=== PATIENT | female | born 1995 | race Caucasian/White ===

== ENCOUNTER 2024-05-18 21:38 | Emergency (ER) | payer OTHER, SELFPAY ==
--- NOTE | ~2024-05-18 | XR_ITS ---
CLINICAL HISTORY: L. ankle pain s p twist injury 3 view left ankle Comparison: None Findings: No acute fractures or dislocations. No significant arthritic change or erosions. No ankle effusion. No radiopaque foreign body. IMPRESSION: 1. No acute findings. This document has been electronically signed by: Elbert Jones MD on 05/18/2024 22:40:49
[2024-05-18 21:46] VITALS: BP 121/65; PULSE 71; RESP 16; TEMP 36.2; O2SAT 98; BMI 17.9
[2024-05-18 22:38] VITALS: BP 101/50; PULSE 68; RESP 12; TEMP 36.6; O2SAT 98
--- NOTE | 2024-05-18 22:45 | ED.LOWEXIN ---
HPI - Extremity Injury (Lower) General Chief Complaint: Extremity Injury, Lower Stated Complaint: left ankle inj Time Seen by Provider: 05/18/24 22:33 Source: patient Mode of arrival: ambulatory Limitations: no limitations History of Present Illness ED Provider: DR. Hendrickson HPI Narrative: 28-year-old female came in for evaluation of left ankle pain after twisting her ankle while playing soccer game to the hospital last night. Patient did not fall down, still able to bear weight on her left ankle no head injury, no cervical spine injury. Otherwise patient has no complaint. Related Data Allergies Allergy/AdvReac Type Severity Reaction Status Date / Time No Known Allergies Allergy Verified 05/18/24 21:49 Review of Systems Review of Systems: All other systems are reviewed and are negative Constitutional: Reports as per HPI and Reports no additional constitutional complaints Eyes: Reports as per HPI and Reports no additional eye complaints Reports system reviewed and no additional complaints, except as documented Cardiovascular: Reports as per HPI and Reports no additional cardiovascular complaints Respiratory: Reports as per HPI and Reports no additional respiratory complaints Gastrointestinal: Reports as per HPI and Reports no additional gastrointestinal complaints Genitourinary: Reports no additional female genitourinary complaints Musculoskeletal: Reports no additional musculoskeletal complaints Skin/Breast: Reports system reviewed and no additional complaints, except as docu Psychiatric: Reports no additional psychiatric complaints Endocrine: Reports no additional endocrine complaints Hematologic/Lymphatic: Reports no additional hematologic/lymphatic complaints Allergic/Immunologic: Reports no additional allergic/immunologic complaints Reports system reviewed and no additional complaints, except as documented and Reports Abnormal speech present COUNT INCLUDES THE [facility] Social History Social History Do you have a plan to hurt others: No Plan Physical Exam Vital Signs: Vital Signs: Last Vital Signs Temp 97.8 F 05/18/24 22:38 Pulse 68 05/18/24 22:38 Resp 12 05/18/24 22:38 BP 101/50 L 05/18/24 22:38 Pulse Ox 98 05/18/24 22:38 O2 Del Method Room Air 05/18/24 22:38 BMI result Body Mass Index 17.9 Vital signs have been reviewed and appear to be correct. Blood pressure elevated. Heart rate normal. Respiratory rate normal. Temperature normal. Oxygen saturation normal. Appearance: Alert. Oriented X3. No acute distress. Head: Normal external exam. Normocephalic. Atraumatic. No Swartz signs noted. No raccoon eyes noted Eyes: PERRLA. EOMI. Conjunctiva and sclera normal. Eyelids normal. ENT: TM's Normal. Pharynx normal. Uvula midline. Moist mucous membranes. No trismus noted. No drooling noted. No muffled voice noted. Neck: Normal inspection. Neck supple. FROM. No adenopathy. Thyroid Normal. No meningeal signs. No neck mass noted. CVS: Normal heart rate and rhythm. Heart sound normal. No murmurs noted. Pulses normal throughout. Respiratory: No respiratory distress. Painless inspiration. Breath sounds normal. No wheezes/rales/rhonchi noted. Chest nontender. No accessory muscle usage noted or decreased air movement noted. Abdomen: Soft and nontender. Bowel sounds normal in all 4 quadrants. No distention noted. No organomegaly noted. No visible injury noted. Back: No CVA tenderness. Full range of motion noted. Skin: Skin warm and dry. Normal skin color. Normal skin turgor. No rashes/lesions/lacerations noted. Extremities: Left ankle/left foot: Mild tenderness mostly on the lateral aspect of the left ankle, no deformity is appreciated, no swelling, patient is able to ambulate. A strong left PT/DP with less than 2 seconds light touch sensation is intact. Neuro: Oriented X 3. Cranial nerve exam: II-XII are grossly intact No motor deficit. No sensory deficit. Reflexes normal. Course Reevaluation(s) Reevaluation #1: 28-year-old female s/p left ankle injury, able to ambulate, neurovascularly intact on the physical exam, x-ray of left ankle showed no acute fracture. Will apply Kaushik bandage, take ibuprofen 200 mg tablet if needed for pain Time: 22:49 Medical Decision Making Differential Diagnosis Differential Diagnoses: The differential diagnosis associated with the presentation includes (Left ankle fracture, left ankle sprain, left ankle dislocation, head injury, cervical spine injury.) Admission/Observation Consideration of admission/observation: Escalation of care including admission/observation considered Independent Interpretation I performed an independent interpretation of an: Plain X-Ray (Left ankle: No acute fracture or dislocation.) Radiology Impression Discussion of test interpretation with radiology: I have reviewed the radiologist's reading. Discharge Plan Discharge Clinical Impression: Ankle sprain and strain Patient Disposition: Home, Self-Care Instructions: Ankle Sprain (ED) Additional Instructions: Take ggen-xzs-fmpmfxd ibuprofen tablet 200 mg every 6 hours if needed for pain.
--- OUTSIDE RECORDS SUMMARY | 2024-05-18 23:07 | XMS_ITS | Continuity of Care Document ---
Author Organization [facility] Address [address] [address]- Support Name Relationship Address Phone MARISA BARRERA Personal Relationship Unknown Unavai lable GREMLI, MARISA Personal Relationship Unknown Unavai lable GREMLI, MARISA father Unknown Unavailable GRENEIL, MARISA Personal Relationship Unknown Unavai lable GREMLI, MARISA Personal Relationship Unknown Unavai lable GREMLI, MARISA Personal Relationship Unknown Unavai lable GREMLI, MARISA Personal Relationship Unknown Unavai lable GREMLI, MARISA Personal Relationship Unknown Unavai lable GREMLI, MARISA Personal Relationship Unknown Unavai lable GREMLI, MARISA Personal Relationship Unknown Unavai lable GREMLI, MARISA Personal Relationship Unknown Unavai lable GREMLI, MARISA Personal Relationship Unknown Unavai lable GREMLI, MARISA Personal Relationship Unknown Unavai lable GREMLI, MARISA Personal Relationship Unknown Unavai lable GREMLI, MARISA Personal Relationship Unknown Unavai lable GREMLI, MARISA Personal Relationship Unknown Unavai lable GREMLI, MARISA Personal Relationship Unknown Unavai lable GREMLI, ANDIE Personal Relationship Unknown Unavai lable GREMLI, MARISA Personal Relationship Unknown Unavai lable GREMLI, MARISA Personal Relationship Unknown Unavai lable GREMLI, MARISA Personal Relationship Unknown Unavai lable GREMLI, MARISA Personal Relationship Unknown Unavai lable GREMLI, MARISA Personal Relationship Unknown Unavai lable GREMLI, MARISA Personal Relationship Unknown Unavai lable GREMLI, MARISA Personal Relationship Unknown Unavai lable GREMLI, MARISA Personal Relationship Unknown Unavai lable GREMLI, MARISA Personal Relationship Unknown Unavai lable GREMLI, MARISA Personal Relationship Unknown Unavai lable GREMLI, MARISA Personal Relationship Unknown Unavai lable GREMLI, MARISA Personal Relationship Unknown Unavai lable GREMLI, MARISA Personal Relationship Unknown Unavai lable GREMLI, MARISA Personal Relationship Unknown Unavai lable GREMLI, MARISA Personal Relationship Unknown Unavai lable GREMLI, MARISA Personal Relationship Unknown Unavai lable GREMLI, MARISA Personal Relationship Unknown Unavai lable GREMLI, MARISA Personal Relationship Unknown Unavai lable GREMLI, MARISA Personal Relationship Unknown Unavai lable GREMLI, MARISA Personal Relationship Unknown Unavai lable GREMLI, MARISA Personal Relationship Unknown Unavai lable GREMLI, MARISA Personal Relationship Unknown Unavai lable GREMLI, MARISA Personal Relationship Unknown Unavai lable GREMLI, MARISA Personal Relationship Unknown Unavai lable GREMLI, MARISA Personal Relationship Unknown Unavai lable GREMLI, MARISA Personal Relationship Unknown Unavai lable GREMLI, MARISA Personal Relationship Unknown Unavai lable GREMLI, MARISA Personal Relationship Unknown Unavai lable GREMLI, MARISA Personal Relationship Unknown Unavai lable GREMLI, MARISA Personal Relationship Unknown Unavai lable GREMLI, MARISA Personal Relationship Unknown Unavai lable GREMLI, MARISA Personal Relationship Unknown Unavai lable GREMLI, MARISA Personal Relationship Unknown Unavai lable Care Team Providers Care Customer Service Representative Name Role Phone Loyd CASTANON, Xavi Earl Primary Care Physician Encounter [facility] ACCT R [id number] Date(s): 03/28/24 - 04/27/24 [facility] [address] [place] [address] Encounter Type: Triage Allergies, Adverse Reactions, Alerts No Known Medication Allergies Immunizations Given and Recorded Vaccine Date Status Refusal Reason influenza virus vaccine, inactivated 1 01/30/24 Gi sanjuana influenza virus vaccine, inactivated 2 01/24/23 Gi sanjuana influenza virus vaccine, inactivated 3 12/21/21 Gi sanjuana influenza virus vaccine, inactivated 4 01/19/21 Gi sanjuana influenza virus vaccine, inactivated 5 04/02/19 Gi sanjuana influenza virus vaccine, inactivated 6 01/10/18 Gi sanjuana SARS-CoV-2 mRNA (hulefip-wzwn-agscn) vax 01/03/22 Recorded SARS-CoV-2 (COVID-19) mRNA-1273 vaccine 03/03/21 R ecorded SARS-CoV-2 (COVID-19) mRNA-1273 vaccine 07/17/20 R ecorded SARS-CoV-2 (COVID-19) mRNA-1273 vaccine 06/19/20 R ecorded tetanus/diphtheria/pertussis, acel(Tdap) 08/07/19 Recorded tetanus-diphtheria toxoids (Td) 08/05/19 Recorded 1Result Comment: [id number] 2Result Comment: [facility] [id number] 3Result Comment: [facility]: [phone] 4Result Comment: [facility]: [phone] 5Result Comment: PT handled procedure well with no complaints. [facility]: [id number] 6Result Comment: [01/10/2018] [facility]#[id number] Medications ethinyl estradiol-etonogestrel 0.015 mg-0.120 mg/24 hours vaginal ring See Instructions, Insert 1 ring vaginally for 3 weeks, then remove for 7 days and insert new ring after., # 3 Unknown, 0 Refills, Maintenance, 01/29/24 2:08:00 PM EST, Prescription [facility], 84, Insert 1ring vaginally for 3 weeks, then remove for 7 days and insert new ring after., 158, cm, 07/25/23 10:27:00 EDT, Height, 41.3, kg, 07/25/23 10:27:00 EDT, Dry Weight Start Date: 01/29/24 Status: Ordered Quantity: 3.0 Unit: Unknown Repeat number: 1 lamotrigine 100 mg oral tablet 1, tablet, By Mouth, Daily, Take with 25mg tablet for a total of 125mg daily., # 90 tablet, Refills1, Tot. Refills 1, Maintenance, 12/25/23 1:16:00 PM EDT, Route to Pharmacy Electronically, Prescription [facility], please ship to [address] [address], 158, cm, 07/25/23 10:27:00 EDT,Height, 41.3, kg, 07/25/23 10:27:00 EDT, Dry Weight Start Date: 12/25/23 Status: Ordered Quantity: 90.0 Unit: tablet Repeat number: 2 lamotrigine 25 mg oral tablet 1, tablet, By Mouth, Daily, take with 100mg tab for daily total dose of 125mg, # 90 tablet, Refills1, Tot. Refills 1, Maintenance, 12/25/23 1:16:00 PM EDT, Route to Pharmacy Electronically, Prescription [facility], please ship to [facility]- [address] [place] [address], 158, cm, 07/25/23 10:27:00 EDT,Height, 41.3, kg, 07/25/23 10:27:00 EDT, Dry Weight Start Date: 12/25/23 Status: Ordered Quantity: 90.0 Unit: tablet Repeat number: 2 methylphenidate 20 mg oral tablet 1 tablet = 20 mg, By Mouth, Daily, Please ship to [facility] at [address] [place] [address], # 30 tablet, 0 Refills, Maintenance, 04/22/24 12:48:00 PM EST, Prescription [facility], 158, cm, 02/13/24 13:09:00 EST, Height, 42.4, kg, 01/30/24 10:30:00 EST, Dry Weight Start Date: 04/22/24 Status: Ordered Quantity: 30.0 Unit: tablet Repeat number: 1 Methylphenidate Hydrochloride CD 40 mg/24 hr oral capsule, extended release 1 capsule = 40 mg, By Mouth, Daily in AM, Please ship to [facility] at [address] [place] [address], # 30 capsule, 0 Refills, Maintenance, 04/22/24 12:48:00 PM EST, Prescription [facility], 158, cm, 02/13/24 13:09:00 EST, Height, 42.4, kg, 01/30/24 10:30:00 EST, Dry Weight Start Date: 04/22/24 Status: Ordered Quantity: 30.0 Unit: capsule Repeat number: 1 QUEtiapine 50 mg oral tablet 1 tablet, By Mouth, Daily at bedtime, # 90 tablet, 1 Refills, Maintenance, 03/28/24 1:01:00 PM EST, [id number], 158, cm, 02/13/24 13:09:00 EST, Height, 42.4, kg, 01/30/24 10:30:00 EST, Dry Weight Start Date: 03/28/24 Status: Ordered Quantity: 90.0 Unit: tablet Repeat number: 2 Vitamin D3 2000 intl units oral tablet 1 tablet = 50 mcg, By Mouth, Daily, # 90 tablet, 0 Refills, Maintenance, 02/04/24 1:50:00 PM EST, Prescription [facility], Partial fill upon patient request if the prescription is for a schedule II opioid drug., 158, cm, 01/30/24 10:30:00 EST, Height, 42.4, kg, 01/30/24 10:30:00 EST, Dry Weight Start Date: 02/04/24 Status: Ordered Quantity: 90.0 Unit: tablet Repeat number: 1 Problem List Condition Confirmation Course Effective Dates Status H ealth Status Informant Anxiety disorder Confirmed Active ADHD (attention deficit hyperactivity disorder), combined type Confirmed Active Dyspareunia Confirmed Active History of panic attacks Confirmed Active History of shingles 1 Confirmed Active Depression, major, recurrent, in partial remission Confirmed Active Heart murmur, systolic Confirmed Active Underweight Confirmed Active Vitamin D insufficiency 2 Confirmed Active 1right leg 01/2021 Social History Social History Type Response Smoking Status Never (less than 100 in lifetime) entered on: 12/06/19 Sex Sex Representation Female (finding) Patient Care team information Care Team Personnel Name: Xavi Harp MD Position: [facility] Physician - Primary Care Member Role: PCP Address: [address] [place] [address] Adult & Pediatric Medicine [address] Telecom: Care Team Related Persons Name: MARISA BARRERA Insurance Providers Guarantor name: ANDIE BARRERA Health Plan Information #: 1 Payer: [employer]IME Member Number: NA Policy Number: NA Group Number: NA Health Plan Information #: 2 Payer: [employer] [facility] Member Number: NA Policy Number: NA Group Number: NA
--- OUTSIDE RECORDS SUMMARY | 2024-05-18 23:07 | XMS_ITS | Continuity of Care Document ---
Author Organization [facility] Address [address] [address]- Support Name Relationship Address Phone MARISA BARRERA [...] Unknown Unavai lable Care Team Providers Care Used Car Make Ready Mechanic Name Role Phone Loyd CASTANON, Xavi Earl Primary Care Physician [phone] [id number] - 04/24/24 [facility] [address] [place] [address] Encounter Type: Triage Allergies, Adverse Reactions, Alerts [...] inactivated 6 01/10/18 Gi sanjuana SARS-CoV-2 mRNA (exhrdtt-glui-tkehn) vax 01/03/22 Recorded SARS-CoV-2 (COVID-19) mRNA-1273 vaccine 03/03/21 R ecorded SARS-CoV-2 (COVID-19) mRNA-1273 vaccine 07/17/20 R ecorded SARS-CoV-2 (COVID-19) mRNA-1273 vaccine 06/19/20 R ecorded tetanus/diphtheria/pertussis, acel(Tdap) 08/07/19 Recorded tetanus-diphtheria toxoids (Td) 08/05/19 Recorded 1Result Comment: [id number] 2Result Comment: [facility] [id number] 3Result Comment: [facility][note 3]: [id number] 4Result Comment: [facility][note 3]: [id number] 5Result Comment: PT handled procedure well with no complaints. [facility]: [id number] 6Result Comment: [01/10/2018] [facility]#[id number] Medications ethinyl estradiol-etonogestrel 0.015 mg-0.120 mg/24 hours vaginal ring See Instructions, Insert 1 ring vaginally for 3 weeks, then remove for 7 days and insert new ring after., # 3 Unknown, 0 Refills, Maintenance, 01/29/24 2:08:00 PM EST, Prescription [facility], 84, Insert 1ring vaginally for 3 weeks, [...] PM EDT, Route to Pharmacy Electronically, Prescription [facility], please ship to [address] [address], 158, cm, 07/25/23 10:27:00 EDT,Height, 41.3, kg, 07/25/23 10:27:00 EDT, Dry Weight Start Date: 12/25/23 Status: Ordered Quantity: 90.0 Unit: tablet Repeat number: 2 lamotrigine 25 mg oral tablet 1, tablet, By Mouth, Daily, take with 100mg tab for daily total dose of 125mg, # 90 tablet, Refills1, Tot. Refills 1, Maintenance, 12/25/23 1:16:00 PM EDT, Route to Pharmacy Electronically, Prescription [facility], please ship to [facility]- [address] [place] [address], 158, cm, 07/25/23 10:27:00 EDT,Height, 41.3, kg, 07/25/23 10:27:00 EDT, Dry Weight Start Date: 12/25/23 Status: Ordered Quantity: 90.0 Unit: tablet Repeat number: 2 methylphenidate 20 mg oral tablet 1 tablet = 20 mg, By Mouth, Daily, Please ship to [facility] at [address] [place] [address], # 30 tablet, 0 Refills, Maintenance, 04/22/24 12:48:00 PM EST, Prescription [facility], 158, cm, 02/13/24 13:09:00 EST, Height, 42.4, kg, 01/30/24 10:30:00 EST, Dry Weight Start Date: 04/22/24 Status: Ordered Quantity: 30.0 Unit: tablet Repeat number: 1 Methylphenidate Hydrochloride CD 40 mg/24 hr oral capsule, extended release 1 capsule = 40 mg, By Mouth, Daily in AM, Please ship to [facility] at [address] [place] [address], # 30 capsule, 0 Refills, Maintenance, 04/22/24 12:48:00 PM EST, Prescription [facility], 158, cm, 02/13/24 13:09:00 EST, Height, 42.4, [...] Refills, Maintenance, 02/04/24 1:50:00 PM EST, Prescription [facility], Partial fill upon patient request if the [...] Team Personnel Name: Xavi Harp MD Position: [facility] Physician - Primary Care Member Role: PCP Address: [address] [place] [address] Adult & Pediatric Medicine [address] Telecom: Care Team Related Persons Name: MARISA BARRERA Insurance Providers Guarantor name: ANDIE BARRERA Health Plan Information #: 1 Payer: [employer]IME Member Number: NA Policy Number: NA Group Number: NA Health Plan Information #: 2 Payer: [employer] [facility] Member Number: NA Policy Number: NA Group Number: NA
--- OUTSIDE RECORDS SUMMARY | 2024-05-18 23:08 | XMS_ITS ---
Author Name [facility] Organization Unknown History of Medication Use Medication Directions Dispensed Refills Start Date End Date Stat No known medications No known medications active Problems Problem Status Onset Date Problem Type Date of Resoluti on Source Injury of nose, initial encounter active [facility]
--- OUTSIDE RECORDS SUMMARY | 2024-05-18 23:08 | XMS_ITS | Continuity of Care Document ---
Author Organization [facility] Address [address] [address]- Support Name Relationship Address Phone MARISA BARRERA [...] Unknown Unavai lable Care Team Providers Care Straw Hat Washer Operator Name Role Phone Loyd CASTANON, Xavi Earl Primary [id number]/28/[facility] - 04/27/24 [facility] [address] [place] [address] Encounter Type: Triage Allergies, Adverse Reactions, Alerts [...] inactivated 6 01/10/18 Gi san[facility]ana SARS-CoV-2 mRNA (pknafok-rkfh-dbmth) vax 01/03/22 Recorded SARS-CoV-2 (COVID-19) mRNA-1273 vaccine 03/03/21 R ecorded SARS-CoV-2 (COVID-19) mRNA-1273 vaccine 07/17/20 R ecorded SARS-CoV-2 (COVID-19) mRNA-1273 vaccine 06/19/20 R ecorded tetanus/diphtheria/pertussis, acel(Tdap) 08/07/19 Recorded tetanus-diphtheria toxoids (Td) 08/05/19 Recorded 1Result Comment: [id number] 2Result Comment: [facility] [id number] 3Result Comment: [facility]: [phone] 4Result Comment: [facility]: [phone] 5Result Comment: PT handled procedure well with no complaints. [facility]: [id number] 6Result Comment: [01/10/2018] [facility]#[id number] Medications ethinyl estradiol-etonogestrel 0.015 mg-0.120 mg/24 hours vaginal ring See Instructions, Insert 1 ring vaginally for 3 weeks, then remove for 7 days and insert new ring after., # 3 Unknown, 0 Refills, Maintenance, 01/29/24 2:08:00 PM EST, Prescription [facility], 84, Insert 1ring vaginally for 3 weeks, [...] PM EDT, Route to Pharmacy Electronically, Prescription [facility], please ship to [address] [address], 158, cm, 07/25/23 10:27:00 EDT,Height, 41.3, kg, 07/25/23 10:27:00 EDT, Dry Weight Start Date: 12/25/23 Status: Ordered Quantity: 90.0 Unit: tablet Repeat number: 2 lamotrigine 25 mg oral tablet 1, tablet, By Mouth, Daily, take with 100mg tab for daily total dose of 125mg, # 90 tablet, Refills1, Tot. Refills 1, Maintenance, 12/25/23 1:16:00 PM EDT, Route to Pharmacy Electronically, Prescription [facility], please ship to [facility]- [address] [place] [address], 158, cm, 07/25/23 10:27:00 EDT,Height, 41.3, kg, 07/25/23 10:27:00 EDT, Dry Weight Start Date: 12/25/23 Status: Ordered Quantity: 90.0 Unit: tablet Repeat number: 2 methylphenidate 20 mg oral tablet 1 tablet = 20 mg, By Mouth, Daily, Please ship to [facility] at [address] [place] [address], # 30 tablet, 0 Refills, Maintenance, 04/22/24 12:48:00 PM EST, Prescription [facility], 158, cm, 02/13/24 13:09:00 EST, Height, 42.4, kg, 01/30/24 10:30:00 EST, Dry Weight Start Date: 04/22/24 Status: Ordered Quantity: 30.0 Unit: tablet Repeat number: 1 Methylphenidate Hydrochloride CD 40 mg/24 hr oral capsule, extended release 1 capsule = 40 mg, By Mouth, Daily in AM, Please ship to [facility] at [address] [place] [address], # 30 capsule, 0 Refills, Maintenance, 04/22/24 12:48:00 PM EST, Prescription [facility], 158, cm, 02/13/24 13:09:00 EST, Height, 42.4, [...] Refills, Maintenance, 02/04/24 1:50:00 PM EST, Prescription [facility], Partial fill upon patient request if the [...] Team Personnel Name: Xavi Harp MD Position: [facility] Physician - Primary Care Member Role: PCP Address: [address] [place] [address] Adult & Pediatric Medicine [address] Telecom: Care Team Related Persons Name: MARISA BARRERA Insurance Providers Guarantor name: ANDIE BARRERA Health Plan Information #: 1 Payer: [employer]IME Member Number: NA Policy Number: NA Group Number: NA Health Plan Information #: 2 Payer: [employer] [facility] Member Number: NA Policy Number: NA Group Number: NA
[2024-05-18 23:31] VITALS: BP 101/50; PULSE 68; RESP 12; TEMP 36.6; O2SAT 98
[2024-05-18 23:33] VITALS: BP 101/50; PULSE 68; RESP 12; TEMP 36.6; O2SAT 98
== END 2024-05-18 23:34 | disposition home or self-care (01) ==
PROVIDERS: Emergency Provider Emergency Medicine; PCP Internal Medicine Sports Medicine
DX: S93.402A Sprain of unspecified ligament of left ankle, initial encounter (principal); S96.912A Strain of unspecified muscle and tendon at ankle and foot level, left foot, initial encounter; X50.1XXA Overexertion from prolonged static or awkward postures, initial encounter; Y93.66 Activity, soccer; Y92.322 Soccer field as the place of occurrence of the external cause; Y99.9 Unspecified external cause status
CPT/HCPCS: 73610; 99283; 99284

== ENCOUNTER → 2024-05-18 22:05 | Outpatient (BNV) | payer SELFPAY | PROVIDERS: Emergency Provider Emergency Medicine; Visit Provider Radiology Diagnostic Radiology | DX: M25.572 Pain in left ankle and joints of left foot (principal) | CPT/HCPCS: 73610 ==